=== PATIENT | male | born 1965 | race Caucasian/White ===

== ENCOUNTER 2021-08-16 09:53 | Inpatient (IN) | payer OTHER ==
[~2021-08-16] VITALS: Ht 177.8 cm; Wt 65.8 kg
[2021-08-16 10:19] LABS: PO2 Arterial 204 mmHg (80-100); pH Blood Arterial 6.95 (7.35-7.45)
[2021-08-16 10:20] LABS: PCO2 Arterial > 105 mmHg (35-45)
[2021-08-16 10:28] LABS: BASOPHILS ABSOLUTE AUTO 0.24 K/mm3 (0.00-0.23); BASOPHILS PERCENT AUTO 1 % (0-2); EOSINOPHILS ABSOLUTE AUTO 0.44 K/mm3 (0.00-0.68); EOSINOPHILS PERCENT AUTO 2 % (0-6); Hematocrit 45.9 % (37.0-53.0); Hemoglobin 13.7 g/dL (13.5-17.5); IMMATURE GRAN ABSOLUTE AUTO 0.36 K/mm3 (0.00-0.10); IMMATURE GRAN PERCENT AUTO 1 % (0-1); LYMPHOCYTES ABSOLUTE AUTO 1.92 K/mm3 (0.84-5.20); LYMPHOCYTES PERCENT AUTO 7 % (21-46); MONOCYTES ABSOLUTE AUTO 1.51 K/mm3 (0.16-1.47); MONOCYTES PERCENT AUTO 5 % (4-13); Mean Corpuscular HGB 29.3 pg (26.0-34.0); Mean Corpuscular HGB Conc 29.8 g/dL (31.5-36.5); Mean Corpuscular Volume 98 fL (80-100); Mean Platelet Volume 9.7 fL (9.1-12.4); NEUTROPHILS PERCENT AUTO 85 % (41-73); Platelet Count 525 K/mm3 (150-400); RDW Coefficient Variation 15.7 % (11.7-14.2); RDW Standard Deviation 56.3 fL (35.1-46.3); Red Blood Cell Count 4.68 M/mm3 (4.30-5.90); White Blood Cell Count 28.87 K/mm3 (4.00-11.30)
[2021-08-16 10:44] LABS: Albumin, Blood 3.9 g/dL (3.4-5.0); Albumin/Globulin Ratio 0.8 (0.8-1.8); Bilirubin, Total 0.2 mg/dL (0.1-1.0); Bun/Creatinine Ratio 19.2 (12.0-20.0); Calcium, Blood 9.7 mg/dL (8.5-10.1); Creatinine, Blood 1.82 mg/dL (0.60-1.20); Globulin, Blood 4.6 g/dL (2.2-4.0); Potassium, Blood 5.5 mmol/L (3.5-5.5); Total Protein, Blood 8.5 g/dL (6.4-8.2); Troponin I 0.04 ng/mL (0.000-0.040)
[2021-08-16 11:14] LABS: SARS-Cov-2 (COVID-19) PCR, MMC NEGATIVE (NEGATIVE)
--- NOTE | 2021-08-16 13:09 | NUR ---
ADMIT NOTE, TO THE FLOOR AT 1250 FROM ER, REP[ORT FROM [facility] ER, PROPOFOL INFUSING, ET TUBE 7.5 25 AT THE TEETH, 28/400/5/40%, PATIENT WAKES EASILY, PULLS AT THE RESTRAINTS, DR WOLF NOTFIED PATIENT IS ON THE FLOOR
[2021-08-16 13:27] LABS: Source, Urine Catheter
[2021-08-16 13:30] LABS: Appearance, Urine Clear (Clear); Bilirubin, Urine Neg (Neg); Blood, Urine 3+ (Neg); Color, Urine Yellow (P-Yellow); Glucose Qualitative, Urine 1+ (Neg); Ketones, Urine Neg (Neg); Leukocyte Esterase, Urine Neg (Neg); Nitrite, Urine Neg (Neg); Protein, Urine 4+ (Neg); Specific Gravity, Urine 1.015 (1.003-1.022); Urobilinogen, Urine NORM (Normal)
[2021-08-16 13:41] LABS: U Amphetamine Screen Not Detected; U Barbituate Screen Not Detected; U Benzodiazapine Screen Not Detected; U Buprenorphine Screen Not Detected; U Cannabinoids Screen DETECTED; U Cocaine Screen Not Detected; U Methadone Screen Not Detected; U Methamphetamine Screen Not Detected; U Opiates Screen Not Detected; U Oxycodone Screen Not Detected; U Phencyclidine Screen Not Detected; U Propoxyphene Screen Not Detected
[2021-08-16 13:57] LABS: Base Excess Venous -8.8 mmol/L; Bicarbonate Venous 17.1 mmol/L (24.0-30.0); PCO2 Venous 57.3 mmHg (38-42); PO2 Venous 96.2 mmHg (38-42)
[2021-08-16 13:58] LABS: pH Blood Venous 7.15 (7.34-7.37)
--- NOTE | 2021-08-16 14:29 | NUR ---
sister at bedside, helpful with patient history, increased sedation for pulling at lines, was answering questions appriately, hold head ct tell later per dr weiss, bolus infusing now, sbp 90s, propofol infusing 50 mcg, echo done, restraints on, bed alarm on, wctm
--- NOTE | 2021-08-16 14:38 | NUR ---
unable to assess suicide screen
[2021-08-16 15:33] LABS: Amorphous Light (0-Heavy); Bacteria Mod /hpf; Squamous Epithelial Cells Rare /hpf (Few)
[2021-08-16 15:35] LABS: Ethanol (Alcohol), Blood, Med <3 mg/dL
--- NOTE | 2021-08-16 17:44 | NUR ---
HEAD CT DONE, BACK FROM RADIOLOGY
--- NOTE | 2021-08-16 20:16 | NUR ---
ASSUMED CARE AT 1900 PT LAYING IN BED INTUBATED WITH VENT SETTINGS AC 28, TV 400, PEEP 5, FIO2 35%; LOBES CLEAR T/O ALL LOBES, MINIMALLY TIGHT. PT SEDATED WITH PROPOFOL INFUSING AT 50MCG/KG/MIN; VERSED INFUSING AT 1MG/HR; PT IS RESPONSIVE TO VERBAL STIMULI AND FOLLOWS DIRECTIONS. AFEBRILE. HR 100-110. SPB 115-130. OG IN PLACE AND CLAMPED. WATTS IN PLACE AND DRAINING TO GRAVITY. SEE SHIFT ASSESSMENT FOR FULL ASSESSMENT.
[2021-08-17 06:36] LABS: BASOPHILS ABSOLUTE AUTO 0.01 K/mm3 (0.00-0.23); BASOPHILS PERCENT AUTO 0 % (0-2); EOSINOPHILS PERCENT AUTO 0 % (0-6); Hematocrit 32.4 % (37.0-53.0); Hemoglobin 10.1 g/dL (13.5-17.5); IMMATURE GRAN ABSOLUTE AUTO 0.05 K/mm3 (0.00-0.10); IMMATURE GRAN PERCENT AUTO 0 % (0-1); LYMPHOCYTES ABSOLUTE AUTO 0.41 K/mm3 (0.84-5.20); LYMPHOCYTES PERCENT AUTO 4 % (21-46); MONOCYTES PERCENT AUTO 6 % (4-13); Mean Corpuscular HGB 29.6 pg (26.0-34.0); Mean Corpuscular HGB Conc 31.2 g/dL (31.5-36.5); Mean Corpuscular Volume 95 fL (80-100); Mean Platelet Volume 10.1 fL (9.1-12.4); NEUTROPHILS ABSOLUTE AUTO 10.26 K/mm3 (1.96-9.15); NEUTROPHILS PERCENT AUTO 90 % (41-73); Platelet Count 250 K/mm3 (150-400); RDW Coefficient Variation 15.7 % (11.7-14.2); RDW Standard Deviation 54.4 fL (35.1-46.3); Red Blood Cell Count 3.41 M/mm3 (4.30-5.90); White Blood Cell Count 11.43 K/mm3 (4.00-11.30)
[2021-08-17 06:40] LABS: Magnesium, Blood 1.9 mg/dL (1.6-2.4)
--- NOTE | 2021-08-17 06:40 | NUR ---
END OF SHIFT SUMMARY NO ACUTE EVENTS OVER NIGHT. PT CONT TO BE INTUBATED AND WAS ON AC SETTINGS FOR MOST OF THE NIGHT. SBT STARTED AT 0520 AND TOLERATING WELL; SETTINGS NOW 10/5, FIO2 35%. PT RESPONSIVE TO VERBAL STIMULI AND PROPOFOL DECREASED TO 25MCG/KG/MIN FOR SBT AND VERSED CONT AT 1MG/HR; PT FOLLOWING DIRECTIONS; PT STARTED PULLING AT RESTRAINTS TO PULL OUT ETT AND BECAME RESTLESS; TITRATED PROPOFOL UP TO 35MCG/KG/MIN AND PT IS STILL TOLERATING SPONT. HR 90-100 AND SBP 100-120 BEFORE SBT. SINCE SBT HR 120'S AND SBP 160-180'S; OG CLAMPED. WATTS IN PLACE AND DRAINING TO GRAVITY. NS INFUSING AT 75ML/HR. WILL REPORT TO AM RN WHEN AVAILABLE.
[2021-08-17 07:06] LABS: International Normalized Ratio 0.9; Prothrombin Time Results 9.5 Sec (9.7-11.5)
--- NOTE | 2021-08-17 07:15 | NUR ---
Assumed care of pt at 0700. Report received from Shelby GONZALES. Pt receiving propofol at 35 mcg/kg/min and versed 1 mg/hr for sedation. Responsive to painful stimulus. 7.5 cm ETT, 25 cm at teeth. Bite block absent. Ventilator on on spontaneous mode with PS 10/5 and 35% FiO2. SpO2 90% or greater. RR 16-20. Tidal volumes 400-500 mL.
[2021-08-17 07:23] LABS: Albumin, Blood 2.8 g/dL (3.4-5.0); Albumin/Globulin Ratio 0.8 (0.8-1.8); Bilirubin, Total 0.2 mg/dL (0.1-1.0); Bun/Creatinine Ratio 22.2 (12.0-20.0); Calcium, Blood 8.3 mg/dL (8.5-10.1); Creatinine, Blood 2.16 mg/dL (0.60-1.20); Globulin, Blood 3.3 g/dL (2.2-4.0); Potassium, Blood 5.8 mmol/L (3.5-5.5)
[2021-08-17 07:59] LABS: Total Protein, Blood 6.1 g/dL (6.4-8.2)
--- NOTE | 2021-08-17 08:44 | NUR ---
Dr Martinez in room to see patient. At this time, RR 30s. Tidal volumes 300s. Pt is also hypertensive, SBP 190s. Tachycardic with HR in 120s. Plan to stop versed. Continue with vent in spontaneous mode PS 10/5. Will give 50 mg metoprolol per tube and resasses HR and BP.
--- NOTE | 2021-08-17 10:05 | NUR ---
Cardiology consulted. Dr Knight in to see patient. Provider states potential for angiogram when pt has been extubated.
--- NOTE | 2021-08-17 14:00 | NUR ---
Pt extubated at 1150. Pt initially lethargic, but at this time is alert and talking to staff. Signs of alcohol withdrawal. Will continue to closely monitor and treat as needed.
--- NOTE | 2021-08-17 18:22 | NUR ---
SUMMARY Neuro: Pt A&O x 4. Pt pleasant and cooperative with care while staff in room. Often removes monitoring equipment when staff absent, however. Pt having symptoms of alcohol withdrawal. Pt gives inconsistent quantities of alcohol consumption. Initially stated he only drinks "a fifth" of whisky "once a month". Denies history of alcohol withdrawal and states he is not concerned about going through withdrawls in absence of alcohol while hospitalized. Later he detailed that he additional drinks "a couple beers", "every other weekend". While receiving CIWA assessment, pt mentioned "every time I get nauseous, I have a drink". While pt's sister was in room visiting with him, she spoke encouraging alcohol cessation and pt asked this RN "So I can't even have a couple beers? How about some wine?" Max CIWA has been 10. Pt continuously denies anxiety, headache, nausea, or hallucinations. Does state he feels sweaty and restless. Tremors present, pt states this is not typical for him. Pt responded well to librium. Pt continuously answers A&O questions correctly and can add serial numbers, however at one point, he pointed to the nurses station and said "Meth heads" and asked "Is that your mother?". Pt passed bedside swallow and has been tolerating clear liquids without signs of aspiration. Musculoskeletal: Repositioning independently in bed. Has not gotten out of bed today. Moves all extremities with equal strength. Denies numbness or tingling. Respriatory: Lungs coarse t/o. Minimal coughing noted after extubation. Pt on room air. Pt often tachypnic. Cardiac: ST per monitor. BP high after extubation and withdrawal of propofol, however responded well to administration of IV hydralyzine. No edema. 2+ radial, pedal, posttibial pulses. Capillary refill less than 3 seconds BUE and BLE. Unremarkable heart sounds. GI: Unremarkable. No BM this shift. : Duenas catheter in place patent and draining clear yellow urine. Excellent urine output following administration of lasix. Skin: Unremarkable Psychosocial: See above for CIWA / alcohol withdrawal. Visited with sister today. Sister supportive to patient.
--- NOTE | 2021-08-17 19:58 | NUR ---
ASSUMED CARE REPORT RECEIVED FROM DAY SHIFT RN. PT IN BED RESTING, DROWSY, AWAKES TO VERBAL STIMULI. AAOX2, DISORIENTED TO TIME. PT IS ST ON THE MONITOR. PT HYPERTENSIVE SBP 150 AND 160. RESPIRATIONS EVEN AND UNLABORED, PT PLACED ON NC AT 2L/MIN DUE TO SATURATIONS IN 88-90%. SEE SHIFT ASSSESSMENT WILL CONTINUE TO MONITOR.
--- NOTE | 2021-08-17 21:22 | NUR ---
PT IS CONFUSED, ANXIOUS, FIDGETING IN BED. PRCEDEX GTT INFUSING AT THIS TIME. PT PULLED OUT IV IN RIGHT FOREARM. RESTRAINTS NOW APPLIED TO PATIENT. WILL CONTINUE TO MONTIOR.
[2021-08-18 04:48] LABS: BASOPHILS ABSOLUTE AUTO 0.05 K/mm3 (0.00-0.23); BASOPHILS PERCENT AUTO 1 % (0-2); EOSINOPHILS ABSOLUTE AUTO 0.12 K/mm3 (0.00-0.68); EOSINOPHILS PERCENT AUTO 1 % (0-6); Hematocrit 33.3 % (37.0-53.0); Hemoglobin 10.3 g/dL (13.5-17.5); IMMATURE GRAN ABSOLUTE AUTO 0.06 K/mm3 (0.00-0.10); IMMATURE GRAN PERCENT AUTO 1 % (0-1); LYMPHOCYTES ABSOLUTE AUTO 0.93 K/mm3 (0.84-5.20); LYMPHOCYTES PERCENT AUTO 8 % (21-46); MONOCYTES ABSOLUTE AUTO 0.73 K/mm3 (0.16-1.47); MONOCYTES PERCENT AUTO 7 % (4-13); Mean Corpuscular HGB 29.3 pg (26.0-34.0); Mean Corpuscular HGB Conc 30.9 g/dL (31.5-36.5); Mean Corpuscular Volume 95 fL (80-100); Mean Platelet Volume 10.2 fL (9.1-12.4); NEUTROPHILS ABSOLUTE AUTO 9.19 K/mm3 (1.96-9.15); NEUTROPHILS PERCENT AUTO 83 % (41-73); Platelet Count 244 K/mm3 (150-400); RDW Coefficient Variation 15.9 % (11.7-14.2); RDW Standard Deviation 55.1 fL (35.1-46.3); Red Blood Cell Count 3.52 M/mm3 (4.30-5.90); White Blood Cell Count 11.08 K/mm3 (4.00-11.30)
[2021-08-18 05:07] LABS: Bun/Creatinine Ratio 23.5 (12.0-20.0); Calcium, Blood 8.3 mg/dL (8.5-10.1); Creatinine, Blood 1.96 mg/dL (0.60-1.20); Magnesium, Blood 2.1 mg/dL (1.6-2.4); Phosphorus, Blood 4.2 mg/dL (2.5-4.9); Potassium, Blood 4.8 mmol/L (3.5-5.5); Troponin I 0.111 ng/mL (0.000-0.040)
--- NOTE | 2021-08-18 06:16 | NUR ---
SHIFT SUMMARY NO ACUTE EVENTS OVERNIGHT. PT ASLEEP, AWAKENED BY VERBAL STIMULI ALERT TO SELF AND PLACE. DISORIENTED TO TIME. PT HAS EPSIODES OF AGITATION AND WANTS TO GO HOME. PT RE-ORIENTED BY RN. PT REMAINS IN SOFT WRIST RESTRAINTS. PRECEDEX INFUSING AT 0.2 MCG/KG/HR. PT IN NSR WITH PEAKED T WAVES. NO SOB NOTED. PT ON 2L NC. NO BM FOR THIS SHIFT. WATTS CATHETER IN PLACE. 1150ML OF YELLOW URINE DRAINED. SAFETY MEASURES IN PLACE. NO ACUTE DISTRESS NOTED. REPORT TO BE GIVEN TO DAY SHIFT RN.
--- NOTE | 2021-08-18 07:30 | NUR ---
ASSUMED CARE REPORT RECIEVED. PT IS RESTING QUIETLY UPON ENTERING ROOM. PT AWAKENS TO VERBAL STIMULI. PT IS DROWSEY, BUT ANSWERS SOME QUESTIONS APPROPRIATELY AND FOLLOWS SIMPLE COMMANDS. PT IS FORGETFUL. SEDATED WITH PRECEDEX AT 0.2 MCG/KG/HR. NS INFUSING AT 100 ML/HR. WATTS IN PLACE WITH CLEAR YELLOW OUTPUT NOTED. PT APPEARS PALE T/O. VITAL SIGNS STABLE. PT ON 2L O2 NC. WILL CONTINUE OT MONITOR.
--- NOTE | 2021-08-18 17:17 | NUR ---
SHIFT SUMMARY NO ACUTE CHANGES THIS SHIFT. PT HAS REMAINED OFF PRECEDEX SINCE THIS MORNING AND HAS REMAINED ALERT AND ORIENTED. PT ANSWERS QUESTIONS APPROPRIATELY AND FOLLOWS DIRECTIONS WELL. PT DENIES PAIN OR DISCOMFORT. VITAL SIGNS STABLE. PT ON 2L O2 NC. PT TOLERATING PO FOODS AND FLUIDS WELL. IVS SALINE LOCKED. WATTS REMAINS IN PLACE WITH CLEAR YELLOW OUTPUT NOTED. WILL CONTINUE TO MONITOR AND REPORT OFF TO ONCOMING RN.
--- NOTE | 2021-08-18 19:27 | NUR ---
ASSUMED CARE REPORT RECEIVED FROM DAY SHIFT RN. PT ALERT AND ORIENTED TO SELF AND PLACE, RE-ORIENTED TO DATE AND TIME. PT IN BED, PLEASANT, RESPIRATIONS EVEN AND UNLABORED. NO DISTRESS NOTED. SEE SHIFT ASSESSMENT. NO S/S OF ALCOHOL WITHDRAWAL AT THIS TIME WILL CONTINUE TO MONITOR.
--- NOTE | 2021-08-18 21:15 | NUR ---
PT TO BE TRANSFERRED TO [facility]. REPORT GIVEN TO DORYS GONZALES. PT TO BE TRANSFERRED ALL OF HIS BELONGINGS.
--- NOTE | 2021-08-18 22:19 | NUR ---
ASSUMPTION OF CARE NOTE PT ARRIVED TO PCU 5 APPROX. 2124 VIA HOSPITAL BED. SPO2 99 VIA 2L NC, NOW PATIENT ON 1L VIA NC AND SPO2 97%. PT DENIES FEELINGS OF CHEST PAIN/PRESSURE/ VITALS SIGNS STABLE. PT ALERT TO SELF, FAMILY, FOLLOWING DIRECTIONS AND EVENT BUT FORGETS WHICH HOSPITAL HE IS AT. PT WAS ORIENTED TO UNIT AND CALL LIGHT, ALL OF PATIENT BELONGINGS WERE SENT WITH PATIENT FROM ICU. PT NOW WATCHING TV, CALL LIGHT IN REACH. WILL CONTINUE TO MONITOR.
--- NOTE | 2021-08-19 04:50 | NUR ---
SHIFT SUMMARY PT IS ALERT AND ORIENTED TO PERSON, PLACE, FAMILY BUT FORGETS WHICH HOSPITAL HE IS AT. SPO2 REMAINS 95-97% VIA 1L NC. VITAL SIGNS STABLE. PT HAS DENIED CHEST PAIN/PRESSURE DURING SHIFT. BOTH LEFT AND RIGHT FOREARM IV'S ARE SALINE LOCKED. WATTS CATHETER IS IN PLACE AND DRAINING CLEAR YELLOW OUTPUT. NO ACUTE CHANGES NOTED SINCE ASSUMPTION OF CARE. PT HAS APPEARED TO BE SLEEPING FOR MAJORITY OF SHIFT. WILL CONTINUE TO MONITOR, CALL LIGHT IN REACH.
--- NOTE | 2021-08-19 06:46 | NUR ---
CARE NOTE PT REPORTED FEELING SHORT OF BREATH/TIGHTNESS. SPO2 MAINTAINING 96-97% VIA 1L NC. THIS NURSE CALLED RESPIRATORY THERAPY AND THERAPIST REPORTED COMING TO PCU 5 AFTER SHE IS DONE IN THE ED. UPON REASSESSMENT, LUNG SOUNDS HAVE REMAINED COARSE T/O. WILL CONTINUE TO MONITOR.
[2021-08-19 11:44] LABS: BASOPHILS ABSOLUTE AUTO 0.07 K/mm3 (0.00-0.23); BASOPHILS PERCENT AUTO 1 % (0-2); EOSINOPHILS ABSOLUTE AUTO 0.35 K/mm3 (0.00-0.68); EOSINOPHILS PERCENT AUTO 5 % (0-6); Hematocrit 32.7 % (37.0-53.0); Hemoglobin 10.3 g/dL (13.5-17.5); IMMATURE GRAN ABSOLUTE AUTO 0.02 K/mm3 (0.00-0.10); IMMATURE GRAN PERCENT AUTO 0 % (0-1); LYMPHOCYTES ABSOLUTE AUTO 1.29 K/mm3 (0.84-5.20); LYMPHOCYTES PERCENT AUTO 18 % (21-46); MONOCYTES ABSOLUTE AUTO 0.77 K/mm3 (0.16-1.47); MONOCYTES PERCENT AUTO 11 % (4-13); Mean Corpuscular HGB 29.2 pg (26.0-34.0); Mean Corpuscular HGB Conc 31.5 g/dL (31.5-36.5); Mean Corpuscular Volume 93 fL (80-100); Mean Platelet Volume 9.6 fL (9.1-12.4); NEUTROPHILS ABSOLUTE AUTO 4.69 K/mm3 (1.96-9.15); NEUTROPHILS PERCENT AUTO 65 % (41-73); Platelet Count 267 K/mm3 (150-400); RDW Coefficient Variation 15.8 % (11.7-14.2); RDW Standard Deviation 53.6 fL (35.1-46.3); Red Blood Cell Count 3.53 M/mm3 (4.30-5.90); White Blood Cell Count 7.19 K/mm3 (4.00-11.30)
[2021-08-19 11:56] LABS: Bun/Creatinine Ratio 23.6 (12.0-20.0); Calcium, Blood 8.3 mg/dL (8.5-10.1); Creatinine, Blood 1.82 mg/dL (0.60-1.20); Potassium, Blood 4.5 mmol/L (3.5-5.5)
--- NOTE | 2021-08-19 11:59 | NUR ---
TRANSFER: PATIENT WAS TRANSFERRED TO [facility] UNIT ~1140. REPORT GIVEN TO [facility] FLOOR NURSE PRIOR TO TRANSFER. PATIENT HAD JUST COMPLETED RESPIRATORY THERAPY AND TRANSFERRED SELF TO THE [facility] FLOOR BED. TOLERATED MOVEMENT WELL.
--- NOTE | 2021-08-19 12:15 | NUR ---
Assume Care Received report from Mercedes PCU-RN. Patient arrived to room at 1145 with [employer] and PCT. Transferred to room 357, self transferred to bed. Belongings at bedside. A/Ox3, pleasant. Settled to room, call light near. Per report, wong removed prior to transfer. No wong upon arrival. Saline locked. Breathing equal and unlabored. On RA. First dose of norvasc given.
--- NOTE | 2021-08-19 16:09 | NUR ---
Shift Summary A/Ox3, pleasant and cooperative. Up with SBA d/t complaints of intermittent dizziness. Calls appropriately. Had shower today with set-up, tolerated this well. CIWA 3 and 1 since on Medical unit. BP remains elevated, prn meds administered and WCTM. Voided s/p wong removal in PCU. Denies pain, nausea, vomiting, shortness of breath. Sats 98% on RA. Worked with PT. Afebrile.
--- NOTE | 2021-08-19 23:15 | NUR ---
RECEIVED CALL FROM [facility] INDICATING A CONCERN OVER THE FACT THAT PATIENT RECEIVED AN AM DOSE OF IMDUR TODAY. HE STATED THAT HIS PROTOCOL CALLS FOR A PATIENT TO BE OFF NITRATES FOR 48 HOURS WHICH WOULD INDICATE THAT [facility] COULDN'T TAKE THE STRESS PORTION OF HIS TEST UNTIL SATURDAY. [employer] SKILL[employer] EDUCATOR ORDER SPECIFIED ONE DAY PROTOCOL. INSTRUCTOR NURSE INFORMED. WILL INFORM ONCOMING RN IN AM TO CALL THE REPRODUCER LIFE SKILLS EDUCATOR FOR CLARIFICATION.
--- NOTE | 2021-08-20 03:59 | NUR ---
PATIENT STILL C/O STRONG PRESSURE OVER CHEST WITH MINIMAL OR NO EXERTION, BUT STATES THAT IT IS INCOMPRABLE TO THE DISCOMFORT HE WAS FEELING WHEN HE ARRIVED LAST WEEK. HE IS AWARE OF [place] THIS MORNING, AND HAS BEEN NPO EXCEPT WATER SINCE 2400. CONCERN OVER PATIENTS' HAVING RECEIVED IMDUR YESTERDAY MORNING WAS VOICED BY [employer] REGARDING ONE DAY PROTOCOL. (SEE NURSES NOTES)
[2021-08-20 08:53] LABS: BASOPHILS ABSOLUTE AUTO 0.05 K/mm3 (0.00-0.23); BASOPHILS PERCENT AUTO 1 % (0-2); EOSINOPHILS ABSOLUTE AUTO 0.44 K/mm3 (0.00-0.68); EOSINOPHILS PERCENT AUTO 7 % (0-6); Hematocrit 36.4 % (37.0-53.0); Hemoglobin 11.5 g/dL (13.5-17.5); IMMATURE GRAN ABSOLUTE AUTO 0.04 K/mm3 (0.00-0.10); IMMATURE GRAN PERCENT AUTO 1 % (0-1); LYMPHOCYTES ABSOLUTE AUTO 1.01 K/mm3 (0.84-5.20); LYMPHOCYTES PERCENT AUTO 16 % (21-46); MONOCYTES ABSOLUTE AUTO 0.67 K/mm3 (0.16-1.47); MONOCYTES PERCENT AUTO 11 % (4-13); Mean Corpuscular HGB 28.9 pg (26.0-34.0); Mean Corpuscular HGB Conc 31.6 g/dL (31.5-36.5); Mean Corpuscular Volume 92 fL (80-100); Mean Platelet Volume 9.8 fL (9.1-12.4); NEUTROPHILS ABSOLUTE AUTO 4.19 K/mm3 (1.96-9.15); NEUTROPHILS PERCENT AUTO 65 % (41-73); Platelet Count 279 K/mm3 (150-400); RDW Coefficient Variation 15.5 % (11.7-14.2); RDW Standard Deviation 52.2 fL (35.1-46.3); Red Blood Cell Count 3.98 M/mm3 (4.30-5.90)
[2021-08-20 09:02] LABS: Bun/Creatinine Ratio 17.4 (12.0-20.0); Calcium, Blood 9.2 mg/dL (8.5-10.1); Creatinine, Blood 1.67 mg/dL (0.60-1.20); Potassium, Blood 3.7 mmol/L (3.5-5.5)
--- NOTE | 2021-08-20 17:59 | NUR ---
SHIFT SUMMARY PATIENT ALERT AND ORIENTED, INDEPENDENT IN THE ROOM THIS SHIFT. PATIENT DENIED CP THIS AM, STATES SOME CHEST PRESSURE THIS AFTERNOON. PATIENT HAD A 2 PART CARDIAC STRESS TEST THIS SHIFT. PATIENT CALM AND COOPERATIVE WITH CARE. PATIENT LYING IN BED THROUGHOUT MOST OF THIS SHIFT. PATIENT CURRENTLY SITTING UP IN BED WATCHING TELEVISION.
[2021-08-21 07:16] LABS: BASOPHILS ABSOLUTE AUTO 0.06 K/mm3 (0.00-0.23); BASOPHILS PERCENT AUTO 1 % (0-2); EOSINOPHILS ABSOLUTE AUTO 0.74 K/mm3 (0.00-0.68); EOSINOPHILS PERCENT AUTO 10 % (0-6); Hematocrit 35.5 % (37.0-53.0); Hemoglobin 11.4 g/dL (13.5-17.5); IMMATURE GRAN ABSOLUTE AUTO 0.08 K/mm3 (0.00-0.10); IMMATURE GRAN PERCENT AUTO 1 % (0-1); LYMPHOCYTES ABSOLUTE AUTO 1.25 K/mm3 (0.84-5.20); LYMPHOCYTES PERCENT AUTO 17 % (21-46); MONOCYTES ABSOLUTE AUTO 0.71 K/mm3 (0.16-1.47); MONOCYTES PERCENT AUTO 9 % (4-13); Mean Corpuscular HGB 29.2 pg (26.0-34.0); Mean Corpuscular HGB Conc 32.1 g/dL (31.5-36.5); Mean Corpuscular Volume 91 fL (80-100); Mean Platelet Volume 10.1 fL (9.1-12.4); NEUTROPHILS ABSOLUTE AUTO 4.75 K/mm3 (1.96-9.15); NEUTROPHILS PERCENT AUTO 63 % (41-73); Platelet Count 275 K/mm3 (150-400); RDW Coefficient Variation 15.4 % (11.7-14.2); RDW Standard Deviation 51.2 fL (35.1-46.3); White Blood Cell Count 7.59 K/mm3 (4.00-11.30)
[2021-08-21 07:37] LABS: Bun/Creatinine Ratio 17.4 (12.0-20.0); Calcium, Blood 8.9 mg/dL (8.5-10.1); Creatinine, Blood 1.67 mg/dL (0.60-1.20); Potassium, Blood 4.4 mmol/L (3.5-5.5)
--- NOTE | 2021-08-21 17:24 | NUR ---
SHIFT SUMMARY PATIENT ALERT, ORIENTED, AND INDEPENDENT IN THE ROOM THIS SHIFT. PATIENT UP TO THE BATHROOM, STATES CHEST PRESSURE IMPROVED THIS SHIFT. PATIENT'S BLOOD PRESSURE 140S/90S THIS AFTERNOON. PATIENT CALM AND COOPERATIVE WITH CARE. PATIENT CURRENTLY SITTING IN THE ROOM WATCHING TELEVISION.
[2021-08-22 05:18] LABS: Hematocrit 35.4 % (37.0-53.0); Hemoglobin 11.4 g/dL (13.5-17.5); Mean Corpuscular HGB 29.2 pg (26.0-34.0); Mean Corpuscular Volume 91 fL (80-100); Red Blood Cell Count 3.91 M/mm3 (4.30-5.90); White Blood Cell Count 6.86 K/mm3 (4.00-11.30)
[2021-08-22 05:19] LABS: BASOPHILS ABSOLUTE AUTO 0.07 K/mm3 (0.00-0.23); BASOPHILS PERCENT AUTO 1 % (0-2); EOSINOPHILS ABSOLUTE AUTO 0.71 K/mm3 (0.00-0.68); EOSINOPHILS PERCENT AUTO 10 % (0-6); IMMATURE GRAN PERCENT AUTO 2 % (0-1); LYMPHOCYTES ABSOLUTE AUTO 1.43 K/mm3 (0.84-5.20); LYMPHOCYTES PERCENT AUTO 21 % (21-46); MONOCYTES PERCENT AUTO 9 % (4-13); Mean Corpuscular HGB Conc 32.2 g/dL (31.5-36.5); Mean Platelet Volume 9.7 fL (9.1-12.4); NEUTROPHILS ABSOLUTE AUTO 3.95 K/mm3 (1.96-9.15); NEUTROPHILS PERCENT AUTO 58 % (41-73); Platelet Count 268 K/mm3 (150-400); RDW Coefficient Variation 15.3 % (11.7-14.2); RDW Standard Deviation 50.3 fL (35.1-46.3)
[2021-08-22 05:41] LABS: Bun/Creatinine Ratio 16.8 (12.0-20.0); Calcium, Blood 9.1 mg/dL (8.5-10.1); Creatinine, Blood 1.73 mg/dL (0.60-1.20); Potassium, Blood 4.5 mmol/L (3.5-5.5)
[2021-08-22] MEDS ORDERED: ALBU2.5V5 INH (12:56)
[2021-08-22] MEDS ORDERED: ASPI81CH PO (12:57)
[2021-08-22] MEDS ORDERED: AMLO10 PO (12:57)
[2021-08-22] MEDS ORDERED: ATOR10 PO (12:58)
[2021-08-22] MEDS ORDERED: FOLI1 PO (12:58)
[2021-08-22] MEDS ORDERED: HYDRA50 PO (12:59)
[2021-08-22] MEDS ORDERED: Imdur60 MG PO (13:00)
[2021-08-22] MEDS ORDERED: METOPROLOL TART50 M2 PO (13:01)
[2021-08-22] MEDS ORDERED: PANT40 PO (13:04)
[2021-08-22] MEDS ORDERED: B-1100 M1 PO (13:05)
--- NOTE | 2021-08-22 13:41 | NUR ---
PT AWAKE DURING SHIFT REPORT, PLEASANT AND CO-OP WITH CARE. INDEPENDENT IN RM. BP MEDS ADJUSTED AGAIN THIS AM. HTN IMPROVED. D/C ORDERS PLACED. MEDS FAXED TO [facility], PER PT REQUEST. D/C INSTRUCTIONS DISCUSSED WITH PT; VERBALIZED UNDERSTANDING. PT'S SISTER HERE TO PICK PT UP AT D/C. DENIED FURTHER NEEDS.
== END 2021-08-22 13:39 | disposition home or self-care (01) | DRG 208 ==
LOC: ER 09:53 → ICUE 12:10 → ICUW 12:10 → ICUE 12:42 → PCU 08-18 21:29 → MEDS 08-19 11:36
PROVIDERS: Emergency Medicine; Family Medicine; Internal Medicine Critical Care Medicine; Nurse Practitioner Acute Care; Student in an Organized Health Care Education/Training Program; ADMIT Internal Medicine
PROC: 5A09357 Assistance with Respiratory Ventilation, Less than 24 Consecutive Hours, Continuous Positive Airway Pressure (ICD-10-PCS; principal; 2021-08-16)
PROC: 0BH18EZ Insertion of Endotracheal Airway into Trachea, Via Natural or Artificial Opening Endoscopic (ICD-10-PCS; 2021-08-16)
PROC: 5A1945Z Respiratory Ventilation, 24-96 Consecutive Hours (ICD-10-PCS; 2021-08-16)
DX: J96.01 Acute respiratory failure with hypoxia (principal); A41.9 Sepsis, unspecified organism; J18.9 Pneumonia, unspecified organism; I50.41 Acute combined systolic (congestive) and diastolic (congestive) heart failure; I21.A1 Myocardial infarction type 2; J44.0 Chronic obstructive pulmonary disease with (acute) lower respiratory infection; J44.1 Chronic obstructive pulmonary disease with (acute) exacerbation; N17.9 Acute kidney failure, unspecified; E87.4 Mixed disorder of acid-base balance; I13.0 Hypertensive heart and chronic kidney disease with heart failure and stage 1 through stage 4 chronic kidney disease, or unspecified chronic kidney disease; I16.1 Hypertensive emergency; J96.02 Acute respiratory failure with hypercapnia; Z20.822 Contact with and (suspected) exposure to COVID-19; F17.210 Nicotine dependence, cigarettes, uncomplicated; E78.5 Hyperlipidemia, unspecified; N18.30 Chronic kidney disease, stage 3 unspecified; I16.0 Hypertensive urgency; F10.20 Alcohol dependence, uncomplicated; R45.1 Restlessness and agitation
CPT/HCPCS: 31720; 36415; 36600; 51702; 70450; 71045; 71260; 78452; 80048; 80053; 81001; 82803; 83605; 83735; 83880; 84100; 84145; 84484; 85025; 85379; 85610; 87040; 87070; 87086; 87205; 93005; 93010; 93017; 93306; 93356; 94002; 94003; 94640; 94644; 94660; 94760; 96365; 96375; 97110; 97116; 97161; 97165; 97530; 99291-25; A9270; A9500; C9113; G0480; J0360; J0456; J0696; J0706; J1650; J1940; J2060; J2250; J2704; J2785; J3411; J7030; J7050; Q9967; U0004